=== PATIENT | male | born 1995 | race African-American/Black ===

== ENCOUNTER 2022-11-22 17:04 | Emergency (ER) | payer OTHER ==
[~2022-11-22] VITALS: Ht 177.8 cm; Wt 100.0 kg
[2022-11-22 19:36] VITALS: BP 158/84
== END 2022-11-22 19:36 | disposition home or self-care (01) ==
LOC: FSED 17:12
DX: N50.812 Left testicular pain (principal); I86.1 Scrotal varices; R94.5 Abnormal results of liver function studies; R94.4 Abnormal results of kidney function studies
CPT/HCPCS: 76870; 80053; 81003; 85025; 99283